=== PATIENT | male | born 1980 | race Caucasian/White ===

== ENCOUNTER 2020-10-13 13:47 | Inpatient (IN) | payer BC ==
[2020-10-13] MEDS ORDERED: Dexamethasone 10 MG/ML VIAL ONE (14:29)
[2020-10-13] MEDS ORDERED: Ketorolac Tromethamine 30 MG/ML VIAL ONE (14:29)
[2020-10-13 14:47] LABS: #Lymphocytes 0.4 thou/uL (1.20-3.40); #Monocytes 0.2 thou/uL (0.11-0.59); #Neutrophils 9.9 thou/uL (1.40-6.50); %Basophils 0.2 % (0.0-1.0); %Eosinophils 0.1 % (0.0-10.0); %Lymphocytes 3.6 % (21.0-51.0); %Monocytes 1.8 % (0.0-10.0); %Neutrophils 94.4 % (42.0-75.0); Hemoglobin 17.3 g/dL (14.0-18.0); Mean Corpuscular HGB CONC 35.2 g/dL (32.0-36.0); Mean Corpuscular Volume 82.3 fL (78.0-98.0); Mean Platelet Volume 7.6 fL (7.4-10.4); Platelet Count 243 thou/uL (130-400); RBC Distribution Width 12.2 % (11.5-14.5); Red Blood Cell (RBC) Count 5.96 mill/uL (4.70-6.10); White Blood Cell (WBC) Count 10.5 thou/uL (4.8-10.8)
[2020-10-13 15:08] LABS: ALT (SGPT) 102 U/L (8-55); AST (SGOT) 56 U/L (5-34); Albumin 3.3 g/dL (3.5-5.0); Alkaline Phosphatase 78 U/L (40-110); Anion Gap 11 mmol/L (10-20); BUN (Urea Nitrogen) 16 mg/dL (8.9-20.6); Bilirubin, Total 0.7 mg/dL (0.2-1.2); Calc. Creatinine Clearance 0 mL/min (70-130); Calcium 8.1 mg/dL (7.8-10.44); Carbon Dioxide 27 mmol/L (22-29); Chloride 104 mmol/L (98-107); Glucose 164 mg/dL (70-105); Potassium 4.7 mmol/L (3.5-5.1); Protein, Total 6.3 g/dL (6.0-8.3); Sodium 137 mmol/L (136-145)
[2020-10-13] MEDS ORDERED: HYDROcodone/Acetaminophen 7.5/325 mg Tablet PO PRN (16:37)
[2020-10-13] MEDS ORDERED: Acetaminophen 325 MG TAB PO PRN (16:37)
[2020-10-13] MEDS ORDERED: Bisacodyl 5 MG TAB PO PRN (16:37)
[2020-10-13] MEDS ORDERED: ALPRAZolam 0.5 MG TAB PO PRN (16:39)
[2020-10-13] MEDS ORDERED: Albuterol 200 PUFF (6.7GM INHALER) INH PRN (16:54)
[2020-10-13 17:20] VITALS: BMI 31.7
[2020-10-13] MEDS: Apixaban 5 MG TAB PO SCH (20:44)
[2020-10-13] MEDS: Colchicine 0.6 MG TAB PO SCH (20:44)
[2020-10-13] MEDS: Benzonatate 100 MG CAP PO SCH (20:44)
[2020-10-13] MEDS: Dexamethasone 10 MG/ML VIAL SLOW IVP SCH (20:44)
[2020-10-13] MEDS: Temazepam 15 MG CAP PO PRN (21:25)
[2020-10-13] MEDS ORDERED: Citalopram 20 MG TAB PO SCH (21:30)
[2020-10-14 05:40] LABS: #Lymphocytes 0.4 thou/uL (1.20-3.40); #Monocytes 0.2 thou/uL (0.11-0.59); #Neutrophils 7.3 thou/uL (1.40-6.50); %Eosinophils 0.2 % (0.0-10.0); %Lymphocytes 5.4 % (21.0-51.0); %Monocytes 2.2 % (0.0-10.0); %Neutrophils 92.2 % (42.0-75.0); Hemoglobin 15.7 g/dL (14.0-18.0); Mean Corpuscular HGB CONC 33.6 g/dL (32.0-36.0); Mean Corpuscular Hemoglobin 27.8 pg (27.0-31.0); Mean Corpuscular Volume 82.9 fL (78.0-98.0); Mean Platelet Volume 7.7 fL (7.4-10.4); Platelet Count 252 thou/uL (130-400); RBC Distribution Width 12.3 % (11.5-14.5); Red Blood Cell (RBC) Count 5.66 mill/uL (4.70-6.10); White Blood Cell (WBC) Count 7.9 thou/uL (4.8-10.8)
[2020-10-14 05:56] LABS: ALT (SGPT) 84 U/L (8-55); AST (SGOT) 48 U/L (5-34); Alkaline Phosphatase 72 U/L (40-110); Anion Gap 15 mmol/L (10-20); BUN (Urea Nitrogen) 14 mg/dL (8.9-20.6); Bilirubin, Total 0.6 mg/dL (0.2-1.2); Calc. Creatinine Clearance 193 mL/min (70-130); Calcium 8.3 mg/dL (7.8-10.44); Carbon Dioxide 22 mmol/L (22-29); Chloride 106 mmol/L (98-107); Globulin 3.5 g/dL (2.4-3.5); Glucose 141 mg/dL (70-105); Potassium 4.5 mmol/L (3.5-5.1); Protein, Total 6.5 g/dL (6.0-8.3); Sodium 138 mmol/L (136-145)
[2020-10-14] MEDS: Zinc Sulfate 220 MG CAP PO SCH (09:01)
[2020-10-14] MEDS: Aspirin Chewable 81 MG TAB PO SCH (09:01)
[2020-10-14] MEDS: Ascorbic Acid 500 mg Chewable Tablet PO SCH (09:01)
[2020-10-14] MEDS: Cholecalciferol (Vitamin D3) 400 UNITS TAB PO SCH (09:01)
[2020-10-14] MEDS: Benzonatate 100 MG CAP PO SCH ×3 (09:02→20:42)
[2020-10-14] MEDS: Dexamethasone 10 MG/ML VIAL SLOW IVP SCH ×2 (09:02→20:42)
[2020-10-14] MEDS: Colchicine 0.6 MG TAB PO SCH ×2 (09:02→20:42)
[2020-10-14] MEDS: Apixaban 5 MG TAB PO SCH ×2 (09:02→20:42)
[2020-10-14] MEDS: Ivermectin 3 MG TAB PO SCH (13:19)
[2020-10-14] MEDS: Citalopram 20 MG TAB PO SCH (20:42)
[2020-10-14] MEDS: Temazepam 15 MG CAP PO PRN (20:43)
[2020-10-15 06:08] LABS: #Lymphocytes 0.6 thou/uL (1.20-3.40); #Monocytes 0.5 thou/uL (0.11-0.59); #Neutrophils 7.6 thou/uL (1.40-6.50); %Basophils 0.2 % (0.0-1.0); %Eosinophils 0.1 % (0.0-10.0); %Monocytes 5.3 % (0.0-10.0); %Neutrophils 87.4 % (42.0-75.0); Mean Corpuscular Hemoglobin 29.1 pg (27.0-31.0); Mean Corpuscular Volume 83.2 fL (78.0-98.0); Mean Platelet Volume 7.9 fL (7.4-10.4); Platelet Count 300 thou/uL (130-400); RBC Distribution Width 12.4 % (11.5-14.5); White Blood Cell (WBC) Count 8.7 thou/uL (4.8-10.8)
[2020-10-15 06:26] LABS: Anion Gap 13 mmol/L (10-20); BUN (Urea Nitrogen) 16 mg/dL (8.9-20.6); CRP (Inflammatory) 3.13 mg/dL (= or < 0.5); Calc. Creatinine Clearance 199 mL/min (70-130); Calcium 8.2 mg/dL (7.8-10.44); Carbon Dioxide 26 mmol/L (22-29); Chloride 106 mmol/L (98-107); Glucose 151 mg/dL (70-105); Potassium 4.6 mmol/L (3.5-5.1); Sodium 140 mmol/L (136-145)
[2020-10-15] MEDS: Ascorbic Acid 500 mg Chewable Tablet PO SCH (08:30)
[2020-10-15] MEDS: Cholecalciferol (Vitamin D3) 400 UNITS TAB PO SCH (08:30)
[2020-10-15] MEDS: BARICITINIB 2 MG TAB PO SCH (08:30)
[2020-10-15] MEDS: Aspirin Chewable 81 MG TAB PO SCH (08:30)
[2020-10-15] MEDS: Colchicine 0.6 MG TAB PO SCH ×2 (08:30→20:56)
[2020-10-15] MEDS: Zinc Sulfate 220 MG CAP PO SCH (08:30)
[2020-10-15] MEDS: Ivermectin 3 MG TAB PO SCH (08:31)
[2020-10-15] MEDS: Apixaban 5 MG TAB PO SCH ×2 (08:31→20:56)
[2020-10-15] MEDS: Benzonatate 100 MG CAP PO SCH ×3 (08:31→20:56)
[2020-10-15] MEDS: Dexamethasone 10 MG/ML VIAL SLOW IVP SCH ×2 (08:32→20:56)
[2020-10-15] MEDS: Albuterol 200 PUFF (6.7GM INHALER) INH SCH ×3 (14:25→22:08)
[2020-10-15] MEDS: Citalopram 20 MG TAB PO SCH (20:56)
[2020-10-15] MEDS: Temazepam 15 MG CAP PO PRN (22:16)
[2020-10-16] MEDS: Albuterol 200 PUFF (6.7GM INHALER) INH SCH ×6 (03:27→22:40)
[2020-10-16 06:30] LABS: #Lymphocytes 0.8 thou/uL (1.20-3.40); #Monocytes 0.6 thou/uL (0.11-0.59); #Neutrophils 9.3 thou/uL (1.40-6.50); %Basophils 0.2 % (0.0-1.0); %Eosinophils 0.2 % (0.0-10.0); %Lymphocytes 7.7 % (21.0-51.0); %Monocytes 5.2 % (0.0-10.0); %Neutrophils 86.8 % (42.0-75.0); Hemoglobin 15.6 g/dL (14.0-18.0); Mean Corpuscular HGB CONC 32.7 g/dL (32.0-36.0); Mean Corpuscular Hemoglobin 27.4 pg (27.0-31.0); Mean Corpuscular Volume 83.7 fL (78.0-98.0); Mean Platelet Volume 7.9 fL (7.4-10.4); Platelet Count 348 thou/uL (130-400); RBC Distribution Width 12.3 % (11.5-14.5); White Blood Cell (WBC) Count 10.6 thou/uL (4.8-10.8)
[2020-10-16 06:54] LABS: Anion Gap 13 mmol/L (10-20); BUN (Urea Nitrogen) 19 mg/dL (8.9-20.6); CRP (Inflammatory) 1.08 mg/dL (= or < 0.5); Calc. Creatinine Clearance 165 mL/min (70-130); Calcium 8.4 mg/dL (7.8-10.44); Carbon Dioxide 27 mmol/L (22-29); Chloride 105 mmol/L (98-107); Glucose 154 mg/dL (70-105); Potassium 4.7 mmol/L (3.5-5.1); Sodium 140 mmol/L (136-145)
[2020-10-16] MEDS: Aspirin Chewable 81 MG TAB PO SCH (09:56)
[2020-10-16] MEDS: Cholecalciferol (Vitamin D3) 400 UNITS TAB PO SCH (09:56)
[2020-10-16] MEDS: Colchicine 0.6 MG TAB PO SCH ×2 (09:56→20:42)
[2020-10-16] MEDS: Apixaban 5 MG TAB PO SCH ×2 (09:56→20:42)
[2020-10-16] MEDS: Ascorbic Acid 500 mg Chewable Tablet PO SCH (09:56)
[2020-10-16] MEDS: Zinc Sulfate 220 MG CAP PO SCH (09:56)
[2020-10-16] MEDS: Benzonatate 100 MG CAP PO SCH ×3 (09:56→20:42)
[2020-10-16] MEDS: Ivermectin 3 MG TAB PO SCH (09:57)
[2020-10-16] MEDS: BARICITINIB 2 MG TAB PO SCH (09:57)
[2020-10-16] MEDS: Dexamethasone 10 MG/ML VIAL SLOW IVP SCH ×2 (09:58→20:42)
[2020-10-16] MEDS: Citalopram 20 MG TAB PO SCH (20:42)
[2020-10-16] MEDS: Temazepam 15 MG CAP PO PRN (20:53)
[2020-10-17] MEDS: Albuterol 200 PUFF (6.7GM INHALER) INH SCH ×5 (02:30→21:51)
[2020-10-17] MEDS: Aspirin Chewable 81 MG TAB PO SCH (13:01)
[2020-10-17] MEDS: Ascorbic Acid 500 mg Chewable Tablet PO SCH (13:01)
[2020-10-17] MEDS: Cholecalciferol (Vitamin D3) 400 UNITS TAB PO SCH (13:01)
[2020-10-17] MEDS: Ivermectin 3 MG TAB PO SCH (13:01)
[2020-10-17] MEDS: BARICITINIB 2 MG TAB PO SCH (13:02)
[2020-10-17] MEDS: Colchicine 0.6 MG TAB PO SCH ×2 (13:02→21:50)
[2020-10-17] MEDS: Apixaban 5 MG TAB PO SCH ×2 (13:02→21:50)
[2020-10-17] MEDS: Benzonatate 100 MG CAP PO SCH ×3 (13:02→21:50)
[2020-10-17] MEDS: Zinc Sulfate 220 MG CAP PO SCH (13:02)
[2020-10-17] MEDS: Dexamethasone 10 MG/ML VIAL SLOW IVP SCH ×2 (13:04→21:51)
[2020-10-17] MEDS: Citalopram 20 MG TAB PO SCH (21:50)
[2020-10-17] MEDS: Temazepam 15 MG CAP PO PRN (21:50)
[2020-10-18] MEDS: Albuterol 200 PUFF (6.7GM INHALER) INH SCH ×6 (03:36→21:45)
[2020-10-18 07:10] LABS: #Lymphocytes 0.8 thou/uL (1.20-3.40); #Monocytes 0.7 thou/uL (0.11-0.59); #Neutrophils 7.8 thou/uL (1.40-6.50); %Basophils 0.4 % (0.0-1.0); %Eosinophils 0.3 % (0.0-10.0); %Lymphocytes 8.8 % (21.0-51.0); %Monocytes 7.2 % (0.0-10.0); %Neutrophils 83.3 % (42.0-75.0); Hemoglobin 16.5 g/dL (14.0-18.0); Mean Corpuscular HGB CONC 34.5 g/dL (32.0-36.0); Mean Corpuscular Hemoglobin 28.6 pg (27.0-31.0); Mean Corpuscular Volume 83.1 fL (78.0-98.0); Mean Platelet Volume 7.7 fL (7.4-10.4); Platelet Count 404 thou/uL (130-400); RBC Distribution Width 12.3 % (11.5-14.5); Red Blood Cell (RBC) Count 5.76 mill/uL (4.70-6.10); White Blood Cell (WBC) Count 9.4 thou/uL (4.8-10.8)
[2020-10-18 07:22] LABS: ALT (SGPT) 61 U/L (8-55); AST (SGOT) 27 U/L (5-34); Albumin 3.1 g/dL (3.5-5.0); Alkaline Phosphatase 70 U/L (40-110); Bilirubin, Direct 0.3 mg/dL (0.1-0.3); Bilirubin, Total 0.6 mg/dL (0.2-1.2); Protein, Total 6.6 g/dL (6.0-8.3)
[2020-10-18 07:23] LABS: Anion Gap 15 mmol/L (10-20); BUN (Urea Nitrogen) 18 mg/dL (8.9-20.6); Calc. Creatinine Clearance 193 mL/min (70-130); Calcium 8.4 mg/dL (7.8-10.44); Carbon Dioxide 22 mmol/L (22-29); Chloride 108 mmol/L (98-107); Glucose 170 mg/dL (70-105); Potassium 4.5 mmol/L (3.5-5.1); Sodium 140 mmol/L (136-145)
[2020-10-18] MEDS: Dexamethasone 10 MG/ML VIAL SLOW IVP SCH ×2 (08:52→22:07)
[2020-10-18] MEDS: Colchicine 0.6 MG TAB PO SCH ×2 (08:53→22:06)
[2020-10-18] MEDS: Benzonatate 100 MG CAP PO SCH ×3 (08:53→22:06)
[2020-10-18] MEDS: Ascorbic Acid 500 mg Chewable Tablet PO SCH (08:53)
[2020-10-18] MEDS: Apixaban 5 MG TAB PO SCH ×2 (08:53→22:06)
[2020-10-18] MEDS: Zinc Sulfate 220 MG CAP PO SCH (08:53)
[2020-10-18] MEDS: Cholecalciferol (Vitamin D3) 400 UNITS TAB PO SCH (08:53)
[2020-10-18] MEDS: Ivermectin 3 MG TAB PO SCH (08:55)
[2020-10-18] MEDS: BARICITINIB 2 MG TAB PO SCH (08:55)
[2020-10-18] MEDS: Aspirin Chewable 81 MG TAB PO SCH (08:58)
[2020-10-18] MEDS: Mometasone 200 MCG/Formoterol 5 MCG 120 PUFF INHALER INH SCH (17:24)
[2020-10-18] MEDS: Temazepam 15 MG CAP PO PRN (22:06)
[2020-10-18] MEDS: Citalopram 20 MG TAB PO SCH (22:06)
[2020-10-19] MEDS: Albuterol 200 PUFF (6.7GM INHALER) INH SCH ×4 (02:30→14:38)
[2020-10-19] MEDS: Mometasone 200 MCG/Formoterol 5 MCG 120 PUFF INHALER INH SCH (05:51)
[2020-10-19 07:59] VITALS: BP 96/60; TEMP 98.5
[2020-10-19] MEDS: Dexamethasone 10 MG/ML VIAL SLOW IVP SCH (08:39)
[2020-10-19] MEDS: Colchicine 0.6 MG TAB PO SCH (08:39)
[2020-10-19] MEDS: Aspirin Chewable 81 MG TAB PO SCH (08:39)
[2020-10-19] MEDS: Cholecalciferol (Vitamin D3) 400 UNITS TAB PO SCH (08:39)
[2020-10-19] MEDS: Apixaban 5 MG TAB PO SCH (08:39)
[2020-10-19] MEDS: Benzonatate 100 MG CAP PO SCH ×2 (08:39→14:38)
[2020-10-19] MEDS: Ascorbic Acid 500 mg Chewable Tablet PO SCH (08:39)
[2020-10-19] MEDS: Zinc Sulfate 220 MG CAP PO SCH (08:39)
[2020-10-19] MEDS: BARICITINIB 2 MG TAB PO SCH (09:11)
[2020-10-19] MEDS: Ivermectin 3 MG TAB PO SCH (09:11)
== END 2020-10-19 17:03 | disposition home or self-care (01) | DRG 177 ==
LOC: ERS 13:47 → T4-B 15:47
PROVIDERS: ADMIT Family Medicine; ATTEND Emergency Medicine
PROC: 8E0ZXY6 Isolation (ICD-10-PCS; principal; 2020-10-13)
DX: U07.1 COVID-19 (principal); J12.82 Pneumonia due to coronavirus disease 2019; J96.01 Acute respiratory failure with hypoxia; G47.33 Obstructive sleep apnea (adult) (pediatric); F41.9 Anxiety disorder, unspecified; Z87.442 Personal history of urinary calculi; Z79.51 Long term (current) use of inhaled steroids; Z79.52 Long term (current) use of systemic steroids; Z79.01 Long term (current) use of anticoagulants; Z79.899 Other long term (current) drug therapy
CPT/HCPCS: 36415; 71045; 80048; 80053; 80076; 84145; 84484; 85025; 86140; 93005; 96374; 96375; J1100; J1885

== ENCOUNTER 2021-07-14 01:50 | Emergency (ER) | payer BC ==
[2021-07-14] MEDS ORDERED: Ketorolac Tromethamine 30 MG/ML VIAL ONE (02:05)
[2021-07-14] MEDS ORDERED: Ondansetron PF 4 MG/2 ML Vial ONE (02:12)
[2021-07-14] MEDS ORDERED: Morphine 4 MG/ML VIAL ONE (02:12)
[2021-07-14 02:30] LABS: #Basophils 0.1 thou/uL (0.0-0.2); #Eosinphils 0.1 thou/uL (0.0-0.7); #Lymphocytes 1.6 thou/uL (1.20-3.40); #Monocytes 0.5 thou/uL (0.11-0.59); #Neutrophils 3.4 thou/uL (1.40-6.50); %Basophils 1.1 % (0.0-1.0); %Eosinophils 1.9 % (0.0-10.0); %Lymphocytes 28.8 % (21.0-51.0); %Monocytes 8.7 % (0.0-10.0); %Neutrophils 59.5 % (42.0-75.0); Hemoglobin 16.3 g/dL (14.0-18.0); Mean Corpuscular Hemoglobin 29.2 pg (27.0-31.0); Mean Corpuscular Volume 85.8 fL (78.0-98.0); Platelet Count 266 thou/uL (130-400); RBC Distribution Width 11.9 % (11.5-14.5); Red Blood Cell (RBC) Count 5.59 mill/uL (4.70-6.10); White Blood Cell (WBC) Count 5.7 thou/uL (4.8-10.8)
[2021-07-14 02:44] LABS: ALT (SGPT) 33 U/L (8-55); AST (SGOT) 23 U/L (5-34); Albumin 4.5 g/dL (3.5-5.0); Alkaline Phosphatase 53 U/L (40-110); Anion Gap 12 mmol/L (10-20); BUN (Urea Nitrogen) 17 mg/dL (8.9-20.6); Bilirubin, Total 0.6 mg/dL (0.2-1.2); Calc. Creatinine Clearance 0 mL/min (70-130); Calcium 9.1 mg/dL (7.8-10.44); Carbon Dioxide 28 mmol/L (22-29); Chloride 103 mmol/L (98-107); Glucose 163 mg/dL (70-105); Potassium 3.7 mmol/L (3.5-5.1); Protein, Total 7.5 g/dL (6.0-8.3); Sodium 139 mmol/L (136-145)
[2021-07-14 06:01] LABS: Bacteria/HPF None Seen HPF (None Seen); Bilirubin Negative (Negative); Blood, Urine 2+ (Negative); Clarity Clear (Clear); Glucose, Urine (Dipstick) 150 mg/dL (Negative); Ketone, Urine Negative (Negative); Leukocyte Negative Leu/uL (Negative); Nitrite Negative (Negative); Protein, Urine (Dipstick) 10 mg/dL (Neg-Trace); RBC/HPF 21-50 HPF (0-3); Specific Gravity, Urine 1.028 (1.002-1.036); Squamous Epithelial None Seen HPF (0-3); Urobilinogen Normal mg/dL (Less than 2); WBC/HPF 0-3 HPF (0-3); pH, Urine 5.5 (5.0-9.0)
== END 2021-07-14 06:33 | disposition home or self-care (01) ==
LOC: ERS 01:50
DX: N20.0 Calculus of kidney (principal)
CPT/HCPCS: 36415; 74176; 80053; 81003; 81015; 83735; 85025; 87086; 96374; 96375; J1885; J2270; J2405